=== PATIENT | male | born 1995 | race Caucasian/White ===

== ENCOUNTER 2022-05-22 07:15 | Emergency (ER) | payer MEDICAID ==
--- NOTE | 2022-05-22 07:25 | ERPHSYRPT ---
- History of Present Illness Time Seen by Provider: 05/22/22 07:25 Historian: patient Exam Limitations: no limitations Patient Subjective Stated Complaint: PT states "I have a bad gall bladder and it is acting up." Triage Nursing Assessment: PT presented alert and oriented X3, skin pwd. Pt ambulates with an upright steady gait, able to speak in clear full sentences. Pt resting comfortably on the cot. Pt smells strongly of body odor Physician History: This is a 27-year-old overweight white male patient has had no prior abdominal surgeries, he has no diagnosed medical issues and has no known drug allergies and presents with worsening right upper quadrant abdominal pain with associated nausea and vomiting over the last 2 to 3 days. Approximately 2 to 3 days ago patient recalls having eaten meatloaf and this morning the patient had [employer] breakfast sandwich and burrito. He began having some right upper qu adrant abdominal pain and episodes of vomiting. He has known cholelithiasis from a gallbladder ultrasound 2 to 3 years ago and has had episodes similar to this in the past. He denies chest pain. He denies shortness of breath. He denies fevers. He denies cough. Patient was brought into the emergency room by EMS. Patient was at work Timing/Duration: day(s) (2 to 3 days), intermittent, worse Quality: aching, throbbing Abdominal Pain Onset Location: RUQ Pain Radiation: no radiation Severity of Pain-Max: moderate Severity of Pain-Current: mild (To moderate) Modifying Factors: Improves With: vomiting Associated Symptoms: nausea, vomiting, No chest pain, No fever/chills Previous symptoms: same symptoms as today, no recent treatment Allergies/Adverse Reactions: No Known Drug Allergies Allergy (Verified 05/22/22 07:22) Home Medications: No Reportable Medications [No Reported Medications] 05/22/22 [History] Hx Tetanus, Diphtheria Vaccination/Date Given: Yes Hx Influenza Vaccination/Date Given: No Hx Pneumococcal Vaccination/Date Given: No Immunizations Up to Date: Yes Travel Risk - International Travel Have you traveled outside of the country in past 3 weeks: No - Coronavirus Screening Are you exhibiting any of the following symptoms?: No Close contact with a COVID-19 positive Pt in past 14-21 Days: No - Vaccine Status Have you recieved a Covid-19 vaccination: Yes 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: [employer] - Vaccination Dates Date of 2cond Vaccination (if applicable): 2020 - Review of Systems Constitutional: No Symptoms Eyes: No Symptoms Ears, Nose, & Throat: No Symptoms Respiratory: No Symptoms Cardiac: No Symptoms Abdominal/Gastrointestinal: Abdominal Pain, Nausea, Vomiting Genitourinary Symptoms: No Symptoms Musculoskeletal: No Symptoms Skin: No Symptoms Neurological: No Symptoms Psychological: No Symptoms, Hallucinations Hematologic/Lymphatic: No Symptoms Immunological/Allergic: No Symptoms All Other Systems: Reviewed and Negative - Past Medical History Pertinent Past Medical History: Yes Psycho-Social History: Anxiety, Depression - Past Surgical History Past Surgical History: No - Social History Smoking Status: Current some day smoker Exposure to second hand smoke: No Alcohol Use: None Drug Use: none Patient Lives Alone: No Significant Family History: no pertinent family hx - Nursing Vital Signs Nursing Vital Signs: Initial Vital Signs Temperature 97.8 F 05/22/22 07:16 Pulse Rate 87 05/22/22 07:16 Respiratory Rate 20 05/22/22 07:16 Blood Pressure 141/110 05/22/22 07:16 O2 Sat by Pulse Oximetry 96 05/22/22 07:16 Pain Scale Pain Intensity 4 - Physical Exam General Appearance: no apparent distress, alert, obese Eye Exam: PERRL/EOMI, eyes nml inspection Ears, Nose, Throat Exam: normal ENT inspection, moist mucous membranes Neck Exam: normal inspection, non-tender, supple, full range of motion Respiratory Exam: normal breath sounds, lungs clear, airway intact, No chest tenderness, No respiratory distress Cardiovascular Exam: regular rate/rhythm, normal heart sounds, normal peripheral pulses Gastrointestinal/Abdomen Exam: soft, normal bowel sounds, tenderness (Right upper quadrant), guarding (Right upper quadrant to palpation), No rebound Rectal Exam: not done Back Exam: normal inspection, normal range of motion, No CVA tenderness, No vert ebral tenderness Extremity Exam: normal inspection, normal range of motion, pelvis stable Neurologic Exam: alert, oriented x 3, cooperative, administrative job titles II-XII nml as tested, normal mood/affect, nml cerebellar function, nml station & gait, sensation nml Skin Exam: normal color, warm, dry Lymphatic Exam: No adenopathy SpO2 Interpretation: normal SpO2: 96 O2 Delivery: Room Air - Course Nursing assessment & vital signs reviewed: Yes Ordered Tests: Active Orders 24 hr Category Date Time Status IV Insertion STAT Care 05/22/22 07:34 Active ABDOMEN AND PELVIS W/0 CONTRAS [CT] Stat Exams 05/22/22 07:35 Completed AMYLASE Stat Lab 05/22/22 07:44 Completed CBC W DIFF Stat Lab 05/22/22 07:44 Completed CMP Stat Lab 05/22/22 07:44 Completed LIPASE Stat Lab 05/22/22 07:44 Completed UA W/RFX UR CULTURE Stat Lab 05/22/22 07:58 Completed Medication Summary Discontinued Medications Generic Name Dose Route Start Last Admin Trade Name Sasha PRN Reason Stop Dose Admin Hydromorphone HCl 1 mg 05/22/22 07:34 05/22/22 07:52 Hydromorphone 1 Mg/1ml Inj 1 Mg/Ml Syringe IV 05/22/22 07:35 1 mg STAT ONE Administration Hydromorphone HCl Confirm 05/22/22 07:45 Hydromorphone 1 Mg/1ml Inj 1 Mg/Ml Syringe Administered 05/22/22 07:46 Dose 1 mg .ROUTE .STK-MED ONE Hydromorphone HCl 1 mg 05/22/22 10:33 Hydromorphone 1 Mg/1ml Inj 1 Mg/Ml Syringe IV 05/22/22 10:34 STAT ONE Sodium Chloride 1,000 mls @ 999 mls/hr 05/22/22 07:34 05/22/22 09:01 Sodium Chloride 0.9% 1000 Ml IV 05/22/22 08:34 Infused .Q1H1M STA Infusion Sodium Chloride Confirm 05/22/22 07:45 Sodium Chloride 0.9% 1000 Ml Administered 05/22/22 07:46 Dose 1,000 mls @ ud .ROUTE .STK-MED ONE Sodium Chloride 1,000 mls @ 999 mls/hr 05/22/22 09:17 05/22/22 10:40 Sodium Chloride 0.9% 1000 Ml IV 05/22/22 10:17 Infused .Q1H1M STA Infusion Sodium Chloride Confirm 05/22/22 09:27 Sodium Chloride 0.9% 1000 Ml Administered 05/22/22 09:28 Dose 1,000 mls @ ud .ROUTE .STK-MED ONE Morphine Sulfate 4 mg 05/22/22 08:39 05/22/22 08:46 Morphine Sulfate 4 Mg/Ml Injection IV 05/22/22 08:40 Not Given STAT ONE Ondansetron HCl 4 mg 05/22/22 07:34 05/22/22 07:52 Ondansetron Hcl 4 Mg/2 Ml Vial IV 05/22/22 07:35 4 mg STAT ONE Administration Ondansetron HCl Confirm 05/22/22 07:44 Ondansetron Hcl 4 Mg/2 Ml Vial Administered 05/22/22 07:45 Dose 4 mg .ROUTE .STK-MED ONE Lab/Rad Data: Laboratory Result Diagrams 05/22/22 07:44 05/22/22 07:44 Laboratory Results 05/22/22 05/22/22 05/22/22 Range/Units 07:58 07:44 07:44 WBC 4.1 (4.0-10.5) x10^3/uL RBC 5.17 (4.1-5.6) x10^6/uL Hgb 14.8 (12.5-18.0) g/dL Hct 45.6 (42-50) % MCV 88.2 (78-100) fL MCH 28.6 (26-32) pg MCHC 32.5 (32-36) g/dL RDW 12.8 (11.5-14.0) % Plt Count 243 (150-450) x10^3/uL MPV 8.4 (7.5-11.0) fL Gran % 64.1 (36.0-66.0) % Immature Gran % (Auto) 0.5 H (0.00-0.4) % Nucleat RBC Rel Count 0.0 (0.00-0.1) % Eos # (Auto) 0.13 (0-0.5) x10^3/uL Immature Gran # (Auto) 0.02 (0.00-0.03) x10^3u/L Absolute Lymphs (auto) 0.89 L (1.0-4.6) x10^3/uL Absolute Monos (auto) 0.36 (0.0-1.3) x10^3/uL Absolute Nucleated RBC 0.00 (0.00-0.01) x10^3u/L Lymphocytes % 21.7 L (24.0-44.0) % Monocytes % 8.8 (0.0-12.0) % Eosinophils % 3.2 (0.00-5.0) % Basophils % 1.7 (0.0-0.4) % Absolute Granulocytes 2.63 (1.4-6.9) x10^3/uL Basophils # 0.07 (0-0.4) x10^3/uL Sodium 140 (137-145) mmol/L Potassium 3.9 (3.5-5.1) mmol/L Chloride 106 (98-107) mmol/L Carbon Dioxide 26 (22-30) mmol/L Anion Gap 10.9 (5-15) MEQ/L BUN 9 (9-20) mg/dL Creatinine 0.62 L (0.66-1.25) mg/dL Estimated GFR > 60.0 ML/MIN Glucose 131 H (74-106) mg/dL Calcium 9.0 (8.4-10.2) mg/dL Total Bilirubin 4.50 H (0.2-1.3) mg/dL AST 632 H (17-59) U/L ALT 895 H (0-50) U/L Alkaline Phosphatase 80 (38-126) U/L Serum Total Protein 6.9 (6.3-8.2) g/dL Albumin 4.1 (3.5-5.0) g/dL Amylase 44 (30-110) U/L Lipase 40 (23-300) U/L Urine Color [place] A (Yellow) Urine Appearance Clear (Clear) Urine pH 5.5 (4.6-8.0) Ur Specific [place] >=1.030 A (1.005-1.030) Urine Protein 30 (Negative) Urine Glucose (UA) Negative (Negative) mg/dL Urine Ketones Trace A (Negative) Urine Blood Trace (Negative) Urine Nitrite (Negative) Urine Bilirubin Large A (Negative) Urine Urobilinogen 1.0 A (0.2) mg/dL Ur Leukocyte Esterase Small A (Negative) U Hyaline Cast (Auto) NONE SEEN (0-2) /LPF Urine Microscopic RBC 0-2 (0-5) /HPF Urine Microscopic WBC 0-2 (0-5) /HPF Ur Epithelial Cells None Seen (None Seen) /HPF Urine Bacteria None Seen (None Seen) /HPF Urine Culture Reflexed NO (NO) - Progress Progress: improved, pain not gone completely, re-examined Progress Note: 05/22/22 09:59 CAT scan of the abdomen pelvis without contrast shows mild gallbladder distention without gallstones or biliary dilatation. There is no evidence of free air or free fluid 05/22/22 10:20 Medical decision making: This patient likely has cholecystitis with a common duct stone. I spoke with general surgeon Dr. Silvio Hutchison he agrees. There are no gastroenterology specialist in the [facility] that performs ERCPs. Dr. Hutchison feels that the patient would be best served at another facility where baggage porter to perform ERCPs and have this performed prior to cholecystectomy. Patient may require transfer to [place] for this intervention. We will discuss this with the patient. 05/22/22 10:34 Medical decision making: This patient's visit to the emergency department is significantly complex in terms of the diagnostic tools we have used to determine his clinical impression and the number of phone calls we are requiring to discuss this patient's history physical exam and findings on the diagnostic work-up. [facility] has baggage porter but they do not perform ERCPs. [facility] has baggage porter but they are not excepting patients. I did speak with the patient and if we are able to secure a bed in [place], he is willing to be transferred. We will check with baggage porter in [place]. One of our difficulties is transportation to a facility in [place] if we do secure a bed there. 05/22/22 11:16 Medical decision making: We contacted [facility]. We are awaiting the callback from their baggage porter the performs ERCPs. What they are planning to offer, depending on the baggage porter, is a "roundtrip" transfer. The definition being patient admitted in our facility, transferred for an ERCP procedure and then transfer back to our facility after the ERCP has been performed. At that time, general surgeon, Silvio Hutchison will be recontacted and arrangements will be made for a cholecystectomy. I spoke with our hospitalist, Dr. Ceballos. She is agreeable to place this patient in observation and to follow this plan. 05/22/22 11:38 Medical decision making: I spoke with Drs. Avila (GI) and Brooke (hospitalist) at [facility]. They have actually excepted the patient in full transfer without having to perform a "round trip". Patient is agreeable to this. Patient will not need to be placed in observation in our facility. Discussed with Dr.: Tyrese, Other (Silvio Hutchison) Counseled pt/family regarding: lab results, diagnosis, need for follow-up, rad results - Departure Departure Disposition: Transfer Clinical Impression: Cholecystitis, Elevated liver enzymes Condition: Stable Critical Care Time: No Referrals: [facility] [NON-STAFF PHY W/O PRIVILEGES] - Follow up/PCP as directed
[2022-05-22] MEDS ORDERED: Sodium Chloride 0.9% 1000 ML 1,000 ML IV STA ×2 (07:34→09:17)
[2022-05-22] MEDS ORDERED: Zofran 4 MG/2 ML VIAL IV ONE (07:34)
[2022-05-22] MEDS ORDERED: Hydromorphone 1 mg/ml Injection IV ONE ×2 (07:34→10:33)
[2022-05-22] MEDS ORDERED: Zofran 4 MG/2 ML VIAL ONE (07:44)
[2022-05-22] MEDS ORDERED: Sodium Chloride 0.9% 1000 ML 1,000 ML ONE ×3 (07:45→11:31)
[2022-05-22] MEDS ORDERED: Hydromorphone 1 mg/ml Injection ONE ×2 (07:45→11:21)
[2022-05-22 07:48] LABS: Absolute Neutrophil Ct (ANC) 2.63 x10^3/uL (1.4-6.9); Basophil (Absolute #) 0.07 x10^3/uL (0-0.4); Eosinophil % 3.2 % (0.00-5.0); Eosinophil (Absolute #) 0.13 x10^3/uL (0-0.5); Hematocrit 45.6 % (42-50); Hemoglobin 14.8 g/dL (12.5-18.0); Lymphocyte (Absolute #) 0.89 x10^3/uL (1.0-4.6); Lymphocytes % 21.7 % (24.0-44.0); Mean Cell Volume 88.2 fL (78-100); Mean Corpuscular Hemoglobin 28.6 pg (26-32); Mean Corpuscular Hgb Concent. 32.5 g/dL (32-36); Mean Platelet Volume 8.4 fL (7.5-11.0); Monocyte (Absolute #) 0.36 x10^3/uL (0.0-1.3); Monocytes % 8.8 % (0.0-12.0); Neutrophil % 64.1 % (36.0-66.0); Platelet Count 243 x10^3/uL (150-450); Red Blood Count 5.17 x10^6/uL (4.1-5.6); Red Cell Distribution Width 12.8 % (11.5-14.0); White Blood Count 4.1 x10^3/uL (4.0-10.5)
[2022-05-22 08:08] LABS: ALBUMIN 4.1 g/dL (3.5-5.0); ALKALINE PHOSPHATASE 80 U/L (38-126); AMYLASE 44 U/L (30-110); ANION GAP 10.9 MEQ/L (5-15); BLOOD UREA NITROGEN 9 mg/dL (9-20); CHLORIDE 106 mmol/L (98-107); Carbon Dioxide 26 mmol/L (22-30); Creatinine 1 0.62 mg/dL (0.66-1.25); EST GLOMERULAR FILTRATION RATE > 60.0 ML/MIN; Glucose 131 mg/dL (74-106); LIPASE 40 U/L (23-300); Potassium 3.9 mmol/L (3.5-5.1); SGOT/AST 632 U/L (17-59); SODIUM 140 mmol/L (137-145); Total Protein 6.9 g/dL (6.3-8.2)
[2022-05-22 08:16] LABS: SGPT/ALT 895 U/L (0-50)
[2022-05-22 08:22] LABS: Appearance Clear (Clear); Bacteria None Seen /HPF (None Seen); Bilirubin Large (Negative); Blood Trace (Negative); Epithelial Cells None Seen /HPF (None Seen); Glucose, Urine Negative (Negative); Hyaline Casts NONE SEEN /LPF (0-2); Ketones Trace (Negative); Leukocyte Esterase Small (Negative); Ph 5.5 (4.6-8.0); Protein,Urine Dip 30 (Negative); RBC 0-2 /HPF (0-5); Specific Gravity >=1.030 (1.005-1.030); WBC 0-2 /HPF (0-5)
[2022-05-22] MEDS ORDERED: MORPHINE SULFATE 4 MG INJ IV ONE (08:39)
[2022-05-22 08:44] LABS: ADD URINE CULTURE? NO (NO)
--- NOTE | 2022-05-22 09:56 | XRAY ---
Indication: Right upper quadrant pain, vomiting, diarrhea. Multiple contiguous axial images obtained through the abdomen and pelvis without contrast. Comparison: None Lung bases demonstrates minimal dependent atelectasis. No infiltrate or effusion. Heart not enlarged. Stomach is distended with food/fluid. Noncontrasted stomach and bowel loops appear nonobstructed with normal appendix. 20.5 cm fatty hepatomegaly. Mildly distended gallbladder without gallstones or biliary distention. No free fluid/air. Remaining liver, gallbladder, pancreas, spleen, adrenal glands, kidneys, ureters, bladder, and aorta are unremarkable for noncontrast exam. Osseous structures intact. No ventral or inguinal hernias. Impression: 1. Mild distended gallbladder, abnormal postprandial. Sonogram may yield further information if clinically warranted. 2. Fatty hepatomegaly. 3. Remaining CT abdomen/pelvis without contrast exam is negative. Comment: Preliminary interpretation made by C. No critical discrepancy.
[2022-05-22] MEDS ORDERED: Levofloxacin 500MG/100ML D5W 500 MG/100 ML BAG IV STA (11:19)
[2022-05-22] MEDS ORDERED: Levofloxacin 500MG/100ML D5W 500 MG/100 ML BAG IV ONE (11:25)
[2022-05-22] MEDS ORDERED: Sodium Chloride 0.9% 1000 ML 1,000 ML IV SCH (11:30)
[2022-05-22 11:39] LABS: INFLUENZA A NEGATIVE (NEGATIVE); INFLUENZA B NEGATIVE (NEGATIVE); RESPIRATORY SYNCTIAL VIRUS NEGATIVE (Negative); SARS-CoV-2 Xpert Express NEGATIVE (NEGATIVE)
[2022-05-22 12:36] VITALS: O2SAT 98
[2022-05-22 14:16] VITALS: BP 114/71; PULSE 92
== END 2022-05-22 14:40 | disposition short-term general hospital (02) ==
LOC: ED 07:15
DX: K81.9 Cholecystitis, unspecified (principal); R74.8 Abnormal levels of other serum enzymes; R10.11 Right upper quadrant pain; R11.2 Nausea with vomiting, unspecified; Z72.0 Tobacco use
CPT/HCPCS: 0241U; 36415; 74176; 80053; 81001; 82150; 83690; 85025; 96360; 96361; 96365; 96374; 96375; 96376; 99285; J1170; J1956; J2405